=== PATIENT | female | born 1995 | race American Indian/Alaskan Native ===

== ENCOUNTER 2017-07-22 19:23 | Emergency (ER) | payer MEDICAID ==
[2017-07-22 21:24] LABS: Basophils % (Auto) 0.4 % (0.0-1.8); Eosinophils % (Auto) 0.4 % (0.0-4.3); Hematocrit 44.8 % (30.3-42.9); Hemoglobin 15.2 gm/dl (10.1-14.3); Lymphocytes # (Auto) 1.4 K/mm3 (1.2-5.4); Lymphocytes % (Auto) 15.6 % (13.4-35.0); Mean Corpuscular HGB Conc 34 % (30-34); Mean Corpuscular Hemoglobin 33 pg (28-32); Mean Corpuscular Volume 97 fl (79-97); Monocytes # (Auto) 0.7 K/mm3 (0.0-0.8); Platelet Count 291 K/mm3 (140-440); Red Cell Distribution Width 12.4 % (13.2-15.2)
[2017-07-22 21:37] LABS: BUN/Creatinine Ratio 18; Blood Urea Nitrogen 9 mg/dL (7-17); Calcium 9.3 mg/dL (8.4-10.2); Hemolysis Index 11
[2017-07-23 00:05] LABS: Bilirubin,Urine NEG (Negative); Blood,Urine NEG (Negative); Color,Urine Yellow (Yellow); Hyaline Casts,Urine 6 /LPF; Mucus,Urine 2+ /HPF; Protein,Urine <15 mg/dL mg/dL (Negative); RBC,Urine < 1.0 /HPF (0.0-6.0); Urobilinogen,Urine < 2.0 mg/dL (<2.0)
[2017-07-23] MEDS ORDERED: NACL 0.9% 1000 ML 1,000 ML IV ONE (02:23)
[2017-07-23] MEDS ORDERED: ZOFRAN IV ONE (02:23)
[2017-07-23] MEDS ORDERED: D5NS 1,000 ML IV ONE (03:39)
[2017-07-23] MEDS ORDERED: D5NS 1,000 ML IV SCH (04:00)
--- NOTE | 2017-07-23 04:13 | Emergency Department Report ---
ED N/V/D HPI - General Chief complaint: Nausea/Vomiting/Diarrhea Stated complaint: DIZZINESS/CHOKING/CANT EAT Time Seen by Provider: 07/23/17 02:09 Source: patient Mode of arrival: Ambulatory Limitations: No Limitations - History of Present Illness Initial comments: Patient is a 21-year-old female who is presenting with 4 days of nausea and gagging. Patient states she feels like there is just a lot of saliva in her mouth. Patient denies any abdominal pain diarrhea fevers chills at this time. Patient states she is hasn't been able to eat solid food well the last several days. Radiation: none Severity: mild Pain Scale: 1 Worsens with: eating - Related Data Previous Rx's Medication Instructions Recorded Last Taken Type Ondansetron [Zofran Odt] 4 mg PO Q8HR PRN #10 tab.rapdis 07/23/17 Unknown Rx Allergies Allergy/AdvReac Type Severity Reaction Status Date / Time No Known Allergies Allergy Unverified 07/22/17 21:06 ED Review of Systems ROS: Stated complaint: DIZZINESS/CHOKING/CANT EAT Other details as noted in HPI Comment: All other systems reviewed and negative ED Past Medical Hx - Past Medical History Previous Medical History?: No - Surgical History Past Surgical History?: No - Social History Smoking Status: Never Smoker Substance Use Type: None - Medications Home Medications: Home Medications Medication Instructions Recorded Confirmed Last Taken Type Ondansetron [Zofran Odt] 4 mg PO Q8HR PRN #10 tab.rapdis 07/23/17 Unknown Rx ED Physical Exam - General Limitations: No Limitations General appearance: alert, in no apparent distress - Head Head exam: Present: atraumatic, normocephalic - Eye Eye exam: Present: normal appearance - ENT ENT exam: Present: mucous membranes moist - Neck Neck exam: Present: normal inspection - Respiratory Respiratory exam: Present: normal lung sounds bilaterally. Absent: respiratory distress - Cardiovascular Cardiovascular Exam: Present: regular rate, normal rhythm. Absent: systolic murmur, diastolic murmur, rubs, gallop - GI/Abdominal GI/Abdominal exam: Present: soft, normal bowel sounds - Extremities Exam Extremities exam: Present: normal inspection - Back Exam Back exam: Present: normal inspection - Neurological Exam Neurological exam: Present: alert, oriented X3 - Psychiatric Psychiatric exam: Present: normal affect, normal mood - Skin Skin exam: Present: warm, dry, intact, normal color. Absent: rash ED Course Vital Signs 07/22/17 07/22/17 07/22/17 20:41 20:52 23:38 Temperature 98.6 F Pulse Rate 85 83 80 Respiratory 18 19 Rate Blood Pressure 133/82 133/82 O2 Sat by Pulse 100 100 100 Oximetry 07/23/17 07/23/17 07/23/17 01:51 02:00 02:15 Temperature Pulse Rate 71 90 76 Respiratory 17 20 15 Rate Blood Pressure 124/62 118/66 O2 Sat by Pulse 100 99 99 Oximetry ED Medical Decision Making - Lab Data Result diagrams: 07/22/17 21:10 07/22/17 21:10 Lab Results 07/22/17 07/22/17 07/22/17 Range/Units 21:00 21:10 21:10 WBC 9.3 (4.5-11.0) K/mm3 RBC 4.60 (3.65-5.03) M/mm3 Hgb 15.2 H (10.1-14.3) gm/dl Hct 44.8 H (30.3-42.9) % MCV 97 (79-97) fl MCH 33 H (28-32) pg MCHC 34 (30-34) % RDW 12.4 L (13.2-15.2) % Plt Count 291 (140-440) K/mm3 Lymph % (Auto) 15.6 (13.4-35.0) % [place] % (Auto) 8.0 H (0.0-7.3) % Eos % (Auto) 0.4 (0.0-4.3) % Baso % (Auto) 0.4 (0.0-1.8) % Lymph # 1.4 (1.2-5.4) K/mm3 [place] # 0.7 (0.0-0.8) K/mm3 Eos # 0.0 (0.0-0.4) K/mm3 Baso # 0.0 (0.0-0.1) K/mm3 Seg Neutrophils % 75.6 H (40.0-70.0) % Seg Neutrophils # 7.0 (1.8-7.7) K/mm3 Sodium 134 L (137-145) mmol/L Potassium 3.6 (3.6-5.0) mmol/L Chloride 95.1 L (98-107) mmol/L Carbon Dioxide 22 (22-30) mmol/L Anion Gap 21 mmol/L BUN 9 (7-17) mg/dL Creatinine 0.5 L (0.7-1.2) mg/dL Estimated GFR > 60 ml/min BUN/Creatinine Ratio 18 % Glucose 88 (65-100) mg/dL POC Glucose 75 (70-105) Calcium 9.3 (8.4-10.2) mg/dL HCG, Qual (Negative) Urine Color (Yellow) Urine Turbidity (Clear) Urine pH (5.0-7.0) Ur Specific [place] (1.003-1.030) Urine Protein (Negative) mg/dL Urine Glucose (UA) (Negative) mg/dL Urine Ketones (Negative) mg/dL Urine Blood (Negative) Urine Nitrite (Negative) Urine Bilirubin (Negative) Urine Urobilinogen (<2.0) mg/dL Ur Leukocyte Esterase (Negative) Urine WBC (Auto) (0.0-6.0) /HPF Urine RBC (Auto) (0.0-6.0) /HPF U Epithel Cells (Auto) (0-13.0) /HPF Hyaline Casts /LPF Urine Mucus /HPF 07/22/17 07/22/17 Range/Units 21:10 Unknown WBC (4.5-11.0) K/mm3 RBC (3.65-5.03) M/mm3 Hgb (10.1-14.3) gm/dl Hct (30.3-42.9) % MCV (79-97) fl MCH (28-32) pg MCHC (30-34) % RDW (13.2-15.2) % Plt Count (140-440) K/mm3 Lymph % (Auto) (13.4-35.0) % [place] % (Auto) (0.0-7.3) % Eos % (Auto) (0.0-4.3) % Baso % (Auto) (0.0-1.8) % Lymph # (1.2-5.4) K/mm3 [place] # (0.0-0.8) K/mm3 Eos # (0.0-0.4) K/mm3 Baso # (0.0-0.1) K/mm3 Seg Neutrophils % (40.0-70.0) % Seg Neutrophils # (1.8-7.7) K/mm3 Sodium (137-145) mmol/L Potassium (3.6-5.0) mmol/L Chloride (98-107) mmol/L Carbon Dioxide (22-30) mmol/L Anion Gap mmol/L BUN (7-17) mg/dL Creatinine (0.7-1.2) mg/dL Estimated GFR ml/min BUN/Creatinine Ratio % Glucose (65-100) mg/dL POC Glucose (70-105) Calcium (8.4-10.2) mg/dL HCG, Qual Positive (Negative) Urine Color Yellow (Yellow) Urine Turbidity Clear (Clear) Urine pH 5.0 (5.0-7.0) Ur Specific [place] 1.027 (1.003-1.030) Urine Protein <15 mg/dl (Negative) mg/dL Urine Glucose (UA) Neg (Negative) mg/dL Urine Ketones 80 (Negative) mg/dL Urine Blood Neg (Negative) Urine Nitrite Neg (Negative) Urine Bilirubin Neg (Negative) Urine Urobilinogen < 2.0 (<2.0) mg/dL Ur Leukocyte Esterase Neg (Negative) Urine WBC (Auto) 2.0 (0.0-6.0) /HPF Urine RBC (Auto) < 1.0 (0.0-6.0) /HPF U Epithel Cells (Auto) 15.0 H (0-13.0) /HPF Hyaline Casts 6 /LPF Urine Mucus 2+ /HPF - Medical Decision Making Patient's test was positive bedside ultrasound performed by me that showed that the patient's does have a viable intrauterine . Size estimated approximately 6 weeks. Patient was hydrated with a bag of normal saline bag of D5 normal saline secondary to showing her ketones on her urinalysis. The patient is feeling better after fluid resuscitation and will be sent home. Critical care attestation.: If time is entered above; I have spent that time in minutes in the direct care of this critically ill patient, excluding procedure time. ED Disposition Clinical Impression: Dehydration Qualifiers: Weeks of gestation: unspecified Qualified Code(s): Z34.90 - Encounter for supervision of normal , unspecified, unspecified trimester Disposition: DC- TO HOME OR SELFCARE Is pt being admited?: No Does the pt Need Aspirin: No Condition: Stable Instructions: (ED), Morning Sickness (ED) Referrals: JALEEL RANGEL MD [Staff Physician] - 3-5 Days
[2017-07-23 04:42] VITALS: BP 104/49
== END 2017-07-23 04:46 | disposition home or self-care (01) ==
LOC: ED 19:23
DX: Z34.01 Encounter for supervision of normal first pregnancy, first trimester (principal); E86.0 Dehydration; Z3A.01 Less than 8 weeks gestation of pregnancy
CPT/HCPCS: 36415; 80048; 81001; 82962; 84703; 85025; 87086; 93005; 93010; 96361; 96374; 99283; J2405; J7030; J7042